=== PATIENT | male | born 1985 | race Caucasian/White ===

== ENCOUNTER 2016-10-24 16:59 | Emergency (ER) | payer MEDICAID ==
[~2016-10-24] VITALS: Ht 167.6 cm; Wt 110.0 kg
[~2016-10-24 16:59] MED LIST: DIAZ5 PO
[2016-10-24 17:03] VITALS: BP 155/92; PULSE 88; RESP 16; TEMP 98.1; O2SAT 97
--- NOTE | 2016-10-24 18:21 | PD ---
HPI Chief Complaint: Anxiety Time Seen by Provider: 18:14 Travel History International Travel<30 days: No Contact w/Intl Traveler<30days: No Traveled to known affect area: No History of Present Illness HPI 31-year-old male presents for evaluation of anxiety, chest pains and palpitations. Symptoms have been ongoing for the past few months. He reports that the pain comes and goes and there is part of his chest and feels like it could be muscular. He reports that when he has the pains he thinks about it and this causes his heart to beat rapidly. Symptoms tend to last for a few minutes at a time. Symptoms seem to be worse when he is thinking about it and seemed to be alleviated by not thinking about it. He does admit that it appears that there is a degree of anxiety associated with his symptoms. He reports that he has been under a lot of anxiety lately. He is currently in town for school. He is from [place] and he reports that his kids are still in [place]. He denies any depression or suicidal thoughts. He admits that he has been drinking some to help cope with his anxiety. He denies any illicit drug use. He has no significant past medical history. No other complaints. PFSH Past Surgical History Appendectomy: Yes Social History Alcohol Use: Yes (occ) Tobacco Use: No Substance Use: No Allergies-Medications (Allergen,Severity, Reaction): Coded Allergies: No Known Allergies (Unverified , 10/24/16) Reported Meds & Prescriptions Reported Meds & Active Scripts Active Xanax (Alprazolam) 0.5 Mg Tab 0.5 Mg PO Q6H PRN Review of Systems Except as stated in HPI: all other systems reviewed are Neg Physical Exam Narrative GENERAL: Well-developed well-nourished male in no acute distress, somewhat anxious on examination. SKIN: Warm and dry. HEAD: Atraumatic. Normocephalic. EYES: Pupils equal and round. No scleral icterus. No injection or drainage. ENT: No nasal bleeding or discharge. Mucous membranes pink and moist. NECK: Trachea midline. No JVD. CARDIOVASCULAR: Regular rate and rhythm. No murmur appreciated. RESPIRATORY: No accessory muscle use. Clear to auscultation. Breath sounds equal bilaterally. GASTROINTESTINAL: Abdomen soft, non-tender, nondistended. Hepatic and splenic margins not palpable. MUSCULOSKELETAL: No obvious deformities. No edema. NEUROLOGICAL: Awake and alert. No obvious cranial nerve deficits. Motor grossly within normal limits. Normal speech. PSYCHIATRIC: Anxious but insight and judgment normal. Data Data Last Documented VS Vital Signs Date Time Temp Pulse Resp B/P Pulse Ox O2 Delivery O2 Flow Rate FiO2 10/24/16 17:03 98.1 88 16 155/92 97 Orders Electrocardiogram (10/24/16 ) Basic Metabolic Panel (Bmp) (10/24/16 18:19) Ckmb (Isoenzyme) Profile (10/24/16 18:19) Complete Blood Count With Diff (10/24/16 18:19) Troponin I (10/24/16 18:19) Chest, Single Ap (10/24/16 18:19) Alprazolam (Xanax) (10/24/16 18:30) Thyroid Stimulating Hormone (10/24/16 18:21) CKMB (10/24/16 18:20) CKMB% (10/24/16 18:20) Labs Laboratory Tests Test 10/24/16 18:20 White Blood Count 13.7 TH/MM3 Red Blood Count 5.04 MIL/MM3 Hemoglobin 15.7 GM/DL Hematocrit 45.0 % Mean Corpuscular Volume 89.3 FL Mean Corpuscular Hemoglobin 31.2 PG Mean Corpuscular Hemoglobin 34.9 % Concent Red Cell Distribution Width 12.7 % Platelet Count 200 TH/MM3 Mean Platelet Volume 9.8 FL Neutrophils (%) (Auto) 84.8 % Lymphocytes (%) (Auto) 11.4 % Monocytes (%) (Auto) 2.9 % Eosinophils (%) (Auto) 0.4 % Basophils (%) (Auto) 0.5 % Neutrophils # (Auto) 11.6 TH/MM3 Lymphocytes # (Auto) 1.6 TH/MM3 Monocytes # (Auto) 0.4 TH/MM3 Eosinophils # (Auto) 0.1 TH/MM3 Basophils # (Auto) 0.1 TH/MM3 CBC Comment DIFF FINAL Differential Comment Sodium Level 136 MEQ/L Potassium Level 4.0 MEQ/L Chloride Level 102 MEQ/L Carbon Dioxide Level 25.7 MEQ/L Anion Gap 8 MEQ/L Blood Urea Nitrogen 13 MG/DL Creatinine 1.17 MG/DL Estimat Glomerular Filtration 74 ML/MIN Rate Random Glucose 104 MG/DL Calcium Level 9.1 MG/DL Total Creatine Kinase 203 U/L Creatine Kinase MB 0.7 NG/ML Troponin I LESS THAN 0.02 NG/ML Thyroid Stimulating Hormone 2.370 uIU/ML 3rd Gen [facility] Medical Decision Making Medical Screen Exam Complete: Yes Emergency Medical Condition: Yes Medical Record Reviewed: Yes Interpretation(s) EKG reveals sinus rhythm. Differential Diagnosis Anxiety, PVCs, PACs, atrial fibrillation, heart block, doubt pulmonary embolism , doubt acute coronary syndrome, doubt spontaneous pneumothorax, hyperthyroidism , electrolyte abnormality Narrative Course 31-year-old male who has been suffering from symptoms including anxiety, previous chest pains and palpitations for the past several months. Symptoms seem to be worse when he thinks about it and is alleviated when he can clear his mind. On examination he is quite anxious and has been under a lot of stress in regards to moving here from [place] for school and being from family members. Most likely etiology of his symptoms is anxiety. We will check basic lab work, EKG and chest x-ray. He will be given a dose of Xanax. Procedures EKG Prior to Arrival: Yes Scripts Alprazolam (Xanax)0.5 Mg Tab0.5 Mg PO Q6H PRN (ANXIETY) #6 TAB Ref 0 Prov:Peña Rivera MD 10/24/16 Kelvin Stark Oct 24, 2016 18:21
[2016-10-24] MEDS ORDERED: ALPRAZolam 1 MG TAB PO ONE (18:30)
[2016-10-24 18:38] LABS: AUTOMATED NEUTROPHIL # 11.6 TH/MM3 (1.8-7.7); BASOPHIL # 0.1 TH/MM3 (0-0.2); BASOPHIL % 0.5 % (0.0-2.0); EOSINOPHIL # 0.1 TH/MM3 (0-0.4); EOSINOPHIL % 0.4 % (0.0-4.0); HEMO FLAGS DIFF FINAL; LYMPH % 11.4 % (9.0-44.0); LYMPHOCYTE # 1.6 TH/MM3 (1.0-4.8); MEAN CELL VOLUME 89.3 FL (80.0-100.0); MEAN CORPUSCULAR HEMOGLOBIN 31.2 PG (27.0-34.0); MEAN CORPUSCULAR HGB CONC 34.9 % (32.0-36.0); MONO % 2.9 % (0.0-8.0); NEUT % 84.8 % (16.0-70.0); PLATELET COUNT 200 TH/MM3 (150-450); RED BLOOD COUNT 5.04 MIL/MM3 (4.50-5.90); RED CELL DISTRIBUTION WIDTH 12.7 % (11.6-17.2); WHITE BLOOD COUNT 13.7 TH/MM3 (4.0-11.0)
--- NOTE | 2016-10-24 19:00 | RADRPT ---
EXAM DATE/TIME: 10/24/2016 18:33 [facility] COMPARISON: No previous studies available for comparison. INDICATIONS : Chest pain. MEDICAL HISTORY : None. SURGICAL HISTORY : None. ENCOUNTER: Initial ACUITY: 1 month PAIN SCORE: 4/10 LOCATION: Bilateral chest FINDINGS: A single view of the chest demonstrates the lungs to be symmetrically aerated without evidence of mas s, infiltrate or effusion. The cardiomediastinal contours are unremarkable. Osseous structures are intact. CONCLUSION: No acute disease. Jesús Jones MD on October 24, 2016 at 18:59 Board Certified Radiologist. This report was verified electronically.
[2016-10-24 19:04] LABS: ANION GAP 8 MEQ/L (5-15); BICARBONATE 25.7 MEQ/L (21.0-32.0); BLOOD UREA NITROGEN 13 MG/DL (7-18); CHLORIDE 102 MEQ/L (98-107); GLOMERULAR FILTRATION RATE 74 ML/MIN (>89); SODIUM (NA) 136 MEQ/L (136-145)
[2016-10-24 19:09] LABS: CREATINE KINASE 203 U/L (39-308)
[2016-10-24 19:22] LABS: CKMB 0.7 NG/ML (0.5-3.6)
[2016-10-24] MEDS ORDERED: ALPR.5 PO (19:26)
--- NOTE | 2016-10-24 19:26 | PD ---
Data Data Last Documented VS Vital Signs Date Time Temp Pulse Resp B/P Pulse Ox O2 Delivery O2 Flow Rate FiO2 10/24/16 17:03 98.1 88 16 155/92 97 Orders Electrocardiogram (10/24/16 ) Basic Metabolic Panel (Bmp) (10/24/16 18:19) Ckmb (Isoenzyme) Profile (10/24/16 18:19) Complete Blood Count With Diff (10/24/16 18:19) Troponin I (10/24/16 18:19) Chest, Single Ap (10/24/16 18:19) Alprazolam (Xanax) (10/24/16 18:30) Thyroid Stimulating Hormone (10/24/16 18:21) CKMB (10/24/16 18:20) CKMB% (10/24/16 18:20) Labs Laboratory Tests Test 10/24/16 18:20 White Blood Count 13.7 TH/MM3 Red Blood Count 5.04 MIL/MM3 Hemoglobin 15.7 GM/DL Hematocrit 45.0 % Mean Corpuscular Volume 89.3 FL Mean Corpuscular Hemoglobin 31.2 PG Mean Corpuscular Hemoglobin 34.9 % Concent Red Cell Distribution Width 12.7 % Platelet Count 200 TH/MM3 Mean Platelet Volume 9.8 FL Neutrophils (%) (Auto) 84.8 % Lymphocytes (%) (Auto) 11.4 % Monocytes (%) (Auto) 2.9 % Eosinophils (%) (Auto) 0.4 % Basophils (%) (Auto) 0.5 % Neutrophils # (Auto) 11.6 TH/MM3 Lymphocytes # (Auto) 1.6 TH/MM3 Monocytes # (Auto) 0.4 TH/MM3 Eosinophils # (Auto) 0.1 TH/MM3 Basophils # (Auto) 0.1 TH/MM3 CBC Comment DIFF FINAL Differential Comment Sodium Level 136 MEQ/L Potassium Level 4.0 MEQ/L Chloride Level 102 MEQ/L Carbon Dioxide Level 25.7 MEQ/L Anion Gap 8 MEQ/L Blood Urea Nitrogen 13 MG/DL Creatinine 1.17 MG/DL Estimat Glomerular Filtration 74 ML/MIN Rate Random Glucose 104 MG/DL Calcium Level 9.1 MG/DL Total Creatine Kinase 203 U/L Creatine Kinase MB 0.7 NG/ML Troponin I LESS THAN 0.02 NG/ML Thyroid Stimulating Hormone 2.370 uIU/ML 3rd Gen [facility] Supervised Visit with ROSEANN: Yes Narrative Course I, Dr. Rivera, have reviewed the advance practice practitioner's documentation and am in agreement, met with the patient face to face, made the diagnosis, and the medical decision making was done by me. See his note for further details. This is a 31-year-old male who presents with signs and symptoms consistent with panic attacks/anxiety. Physical exam is unremarkable. Vital signs show heart rate 80, blood pressure 155/92, pulse ox 97% on room air, oral temp of 98.1F. CBC shows to be BC 13.7, hemoglobin 15.7, hematocrit 45, platelets 200. BMP is unremarkable. Cardiac enzymes are negative. TSH is 2.37. EKG shows no signs of ischemia, sinus rhythm, rate 76. Chest x-ray shows no acute disease. The patient was given Xanax with improvement in symptoms. I do not believe his symptoms are cardiac in nature. He has no cardiac risk factors. He is not suicidal or homicidal. He is stable for discharge home out patient follow-up with a psychiatrist this week. He was informed on when to return to the emergency department. He verbalizes understanding and agreement with plan. Diagnosis Primary Impression: Anxiety Referrals: Carson Simmons MD 3 days Psychiatrist [facility] days Additional Instruction: Follow-up with a psychiatrist this week. Return to the emergency department for worsening symptoms or any other concerns as discussed. Scripts Alprazolam (Xanax)0.5 Mg Tab0.5 Mg PO Q6H PRN (ANXIETY) #6 TAB Ref 0 Prov:Peña Rivera MD 10/24/16 Disposition: 01 DISCHARGE HOME Condition: Stable Peña Rivera MD Oct 24, 2016 19:26
--- NOTE | 2016-10-25 10:57 | EKG ---
Date Performed: 10/24/2016 Time Performed: 17:31:36 PTAGE: 31 years EKG: Sinus rhythm NORMAL ECG PREVIOUS TRACING : 07/11/2016 18.09 DOCTOR: Taras Silva Interpretating Date/Time 10/25/2016 10:55:14
== END 2016-10-24 19:49 | disposition home or self-care (01) ==
LOC: NEPC 16:59
DX: F41.9 Anxiety disorder, unspecified (principal); R07.9 Chest pain, unspecified; R00.2 Palpitations
CPT/HCPCS: 71010; 80048; 82550; 82552; 84443; 84484; 85025; 93005